=== PATIENT | male | born 1955 | race Caucasian/White ===

== ENCOUNTER 2018-08-27 22:14 | Emergency (ER) | payer OTHER ==
[~2018-08-27] VITALS: Ht 177.8 cm; Wt 79.4 kg
[2018-08-27] MEDS ORDERED: TYLENOL EXTRA500 MG PO (22:26)
[2018-08-27 22:39] LABS: HEMATOCRIT 43.1 % (42.0-52.0); HEMOGLOBIN 14.6 gm/dL (14.0-18.0); MCH 28.8 pg (26.0-34.0); MCHC 33.7 g/dL (28.0-37.0); MCV 85.3 fL (80.0-100.0); RBC 5.06 mil/uL (4.50-6.00); RDW 13.7 % (10.5-14.5); WBC 11.6 thou/uL (4.0-11.0)
[2018-08-27 22:56] LABS: ALBUMIN 4.3 g/dL (3.4-5.0); ANION GAP 12 mmol/L (7-16); BUN 27 mg/dL (7-18); CHLORIDE 103 mmol/L (98-107); CO2 24 mmol/L (21-32); CREATININE 1.7 mg/dL (0.7-1.3); GLUCOSE 149 mg/dL (74-106); POTASSIUM 3.9 mmol/L (3.5-5.1); SGOT 20 U/L (15-37); SGPT 21 U/L (30-65); SODIUM 139 mmol/L (136-145); TOTAL BILIRUBIN 0.4 mg/dL (<0.1-1.0); TOTAL PROTEIN 7.4 g/dL (6.4-8.2); TROPONIN-I <0.06 ng/mL (<0.06)
[2018-08-27 23:00] LABS: CALCIUM 9.4 mg/dL (8.5-10.1)
[2018-08-27 23:00] LABS: URINE BILIRUBIN NEGATIVE (Negative); URINE BLOOD 2+ (Negative); URINE CLARITY CLEAR; URINE COLOR YELLOW; URINE GLUCOSE-RANDOM* NEGATIVE (Negative); URINE KETONES 3+ (Negative); URINE LEUKOCYTES-REFLEX NEGATIVE (Negative); URINE NITRITE-REFLEX NEGATIVE (Negative); URINE PROTEIN (DIPSTICK) NEGATIVE (Negative); URINE SPECIFIC GRAVITY >= 1.030 (1.005-1.035); URINE UROBILINOGEN 0.2 E.U./dl (0.2-1.0)
[2018-08-27 23:26] LABS: BACTERIA-REFLEX None Seen /HPF (None Seen); CASTS None Seen /LPF (None Seen); CRYSTALS None Seen /LPF (None Seen); MUCUS None Seen strn/LPF (None Seen); SQUAMOUS None Seen /LPF (0-3); URINE RBC 0-2 Rare /HPF (0-2); URINE WBC-REFLEX None Seen /HPF (0-5)
[2018-08-28 03:35] VITALS: BP 136/88
--- NOTE | 2018-08-29 08:04 | EKG ---
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1955 Requested By: Brea Ocampo Order Number: [id number] MD: Josh Grover Measurements Intervals [place] Rate: 45 P: 38 GA: 143 QRS: 9 QRSD: 98 T: 1 QT: 447 QTc: 387 Interpretive Statements Sinus bradycardia Otherwise normal tracing No previous ECG available for comparison Electronically Signed On 08-29-2018 8:04:27 CDT by Josh Grover [email or web address] ��������������������������������������������� <ELECTRONICALLY SIGNED> ���������������������������������������� By: Josh Grover MD, [facility] ��������������������������������������������� 08/29/18 [id number] Josh Grover MD, FACC /EPI
== END 2018-08-28 03:36 | disposition home or self-care (01) ==
LOC: ER 22:14
PROVIDERS: Student in an Organized Health Care Education/Training Program
DX: N17.9 Acute kidney failure, unspecified (principal); N13.2 Hydronephrosis with renal and ureteral calculous obstruction

== ENCOUNTER → 2020-08-18 | Outpatient (CLI) | payer OTHER ==
[~2020-08-18] MED LIST: TYLENOL EXTRA500 MG PO
== END ==
LOC: BC 09:13
PROVIDERS: ATTEND Family Medicine
DX: N62 Hypertrophy of breast (principal); N64.4 Mastodynia